=== PATIENT | female | born 1995 | race Two or more races ===

== ENCOUNTER 2018-12-14 23:50 | Emergency (ER) | payer MEDICAID, SELFPAY ==
[~2018-12-14] VITALS: Ht 160 cm; Wt 83.9 kg
[2018-12-15 00:10] VITALS: BP 104/67
[2018-12-15] MEDS ORDERED: NKM (00:10)
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
[2018-12-15] MEDS ORDERED: ACETAMINOPHEN500 M3 ORAL (01:10)
[2018-12-15] MEDS ORDERED: VITATRUE COMBO1 EACH PO (01:10)
[2018-12-15 01:20] VITALS: BP 104/67
--- NOTE | 2018-12-15 01:20 | NUR ---
ER Nurse Note: Pt seen, treated, medically cleared for discharge by ERMD. Discharge instuctions and prescriptions given with repeat verbalization by pt. Informed pt follow up [facility] primary care physcian and OBGYN within one week. All orders completed per ERMD orders. Pt a&ox4, VSS, no signs of distress. ID band removed. Pt left with all belongings, left with own transportation.
== END 2018-12-15 01:20 | disposition home or self-care (01) ==
LOC: EMR 12-15 01:00
DX: S30.1XXA Contusion of abdominal wall, initial encounter (principal); V43.62XA Car passenger injured in collision with other type car in traffic accident, initial encounter; Y92.410 Unspecified street and highway as the place of occurrence of the external cause; Z33.1 Pregnant state, incidental
CPT/HCPCS: 81025; 99283